=== PATIENT | female | born 2000 | race Caucasian/White ===

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

== ENCOUNTER 2021-02-25 11:02 | Emergency (ER) | payer BC, OTHER ==
[2021-02-25 11:08] VITALS: TEMP 97.2
[2021-02-25] MEDS ORDERED: MORPHINE SULFATE 4 MG/ML SYRINGE IV STA (11:37)
[2021-02-25] MEDS ORDERED: SODIUM CHLORIDE 0.9% 1,000 ML IV STA (11:37)
[2021-02-25] MEDS ORDERED: ONDANSETRON 4 MG/2 ML VIAL IVP STA (11:38)
--- NOTE | 2021-02-25 12:06 | ED ---
General Adult HPI - General Chief complaint: Nausea/Vomiting/Diarrhea Stated complaint: vomiting, chest burning Time Seen by Provider: 02/25/21 11:15 Source: patient, RN notes reviewed Mode of arrival: ambulatory - History of Present Illness Initial comments: 20-year-old female with a past medical history of asthma presents to the emergency room for a chief complaint of chest pain. Patient was drinking last night. She started to develop chest pain and nausea vomiting. Patient states she thinks she has all call poisoning. Denies fevers.Patient has no other complaints at this time including shortness of breath, headache, or visual changes. - Related Data Home Medications Medication Instructions Recorded Confirmed Medroxyprogesterone Acetate 150 mg IM Q84D 11/19/20 02/25/21 [Depo-Provera] Allergies Allergy/AdvReac Type Severity Reaction Status Date / Time bee venom protein (honey bee) Allergy Anaphylaxis Verified 02/25/21 12:22 mosquito Allergy Swelling Uncoded 02/25/21 12:22 Review of Systems ROS Statement: Those systems with pertinent positive or pertinent negative responses have been documented in the HPI. ROS Other: All systems not noted in ROS Statement are negative. Past Medical History Past Medical History: Asthma Additional Past Medical History / Comment(s): Sport induced asthma History of Any Multi-Drug Resistant Organisms: None Reported Past Surgical History: No Surgical Hx Reported Additional Past Surgical History / Comment(s): Heart surgery for congenital defect 2009 Past Psychological History: Anxiety, Depression Smoking Status: Never smoker Past Alcohol Use History: None Reported Past Drug Use History: None Reported General Exam General appearance: alert, in distress (mildly distressed secondary to pain) Head exam: Present: atraumatic Eye exam: Present: normal appearance, PERRL, EOMI. Absent: scleral icterus, conjunctival injection ENT exam: Present: normal exam, mucous membranes moist Neck exam: Present: normal inspection, full ROM. Absent: tenderness Respiratory exam: Present: normal lung sounds bilaterally. Absent: respiratory distress, wheezes Cardiovascular Exam: Present: regular rate, normal rhythm, normal heart sounds GI/Abdominal exam: Present: soft, normal bowel sounds. Absent: distended, tenderness Neurological exam: Present: alert Course Vital Signs 02/25/21 02/25/21 02/25/21 11:05 12:08 13:08 Temperature 97.2 F L Pulse Rate 85 Respiratory 18 20 20 Rate Blood Pressure 117/75 O2 Sat by Pulse 99 Oximetry EKG Findings - EKG Comments: EKG Findings:: Normal sinus rhythm, ventricular rate 90, PA interval 150, QTC 467 Medical Decision Making - Medical Decision Making Those are stable. Patient was initially mildly distressed secondary to pain. Workup was obtained. EKG was nonischemic. Laboratory evaluation was unremarkable. Troponin negative. D-dimer normal. Chest x-ray shows no acute cardiopulmonary process. Patient reevaluated after pain medication and fluids and had significant department if symptoms. She is eating and drinking. Stating her pain is at a 0. No hematemesis. Patient at this time is stable for discharge home. Pain was likely musculoskeletal in nature from vomiting. She will return here for any worsening symptoms. - Lab Data Result diagrams: 02/25/21 11:48 02/25/21 11:48 Lab Results 02/25/21 02/25/21 02/25/21 Range/Units 11:48 11:48 11:48 WBC 9.0 (4.0-11.0) k/uL RBC 5.05 (3.80-5.40) m/uL Hgb 14.5 (11.4-16.0) gm/dL Hct 44.1 (34.0-46.0) % MCV 87.4 (80.0-100.0) fL MCH 28.7 (25.0-35.0) pg MCHC 32.9 (31.0-37.0) g/dL RDW 12.9 (11.5-15.5) % Plt Count 281 (150-450) k/uL MPV 7.9 PT 11.5 (9.0-12.0) sec INR 1.1 (<1.2) APTT 24.2 (22.0-30.0) sec D-Dimer 0.25 (<0.60) mg/L FEU Sodium 142 (137-145) mmol/L Potassium 4.2 (3.5-5.1) mmol/L Chloride 108 H (98-107) mmol/L Carbon Dioxide 21 L (22-30) mmol/L Anion Gap 13 mmol/L BUN 10 (7-17) mg/dL Creatinine 0.59 (0.52-1.04) mg/dL Est GFR (CKD-EPI)AfAm >90 (>60 ml/min/1.73 sqM) Est GFR (CKD-EPI)NonAf >90 (>60 ml/min/1.73 sqM) Glucose 110 H (74-99) mg/dL Calcium 10.2 (8.4-10.2) mg/dL Magnesium 1.8 (1.6-2.3) mg/dL Total Bilirubin 0.7 (0.2-1.3) mg/dL AST 23 (14-36) U/L ALT 19 (4-34) U/L Alkaline Phosphatase 60 (38-126) U/L Troponin I (0.000-0.034) ng/mL Total Protein 8.2 (6.3-8.2) g/dL Albumin 5.0 (3.5-5.0) g/dL Lipase 42 (23-300) U/L HCG, Qual Not Detected 02/25/21 Range/Units 11:48 WBC (4.0-11.0) k/uL RBC (3.80-5.40) m/uL Hgb (11.4-16.0) gm/dL Hct (34.0-46.0) % MCV (80.0-100.0) fL MCH (25.0-35.0) pg MCHC (31.0-37.0) g/dL RDW (11.5-15.5) % Plt Count (150-450) k/uL MPV PT (9.0-12.0) sec INR (<1.2) APTT (22.0-30.0) sec D-Dimer (<0.60) mg/L FEU Sodium (137-145) mmol/L Potassium (3.5-5.1) mmol/L Chloride (98-107) mmol/L Carbon Dioxide (22-30) mmol/L Anion Gap mmol/L BUN (7-17) mg/dL Creatinine (0.52-1.04) mg/dL Est GFR (CKD-EPI)AfAm (>60 ml/min/1.73 sqM) Est GFR (CKD-EPI)NonAf (>60 ml/min/1.73 sqM) Glucose (74-99) mg/dL Calcium (8.4-10.2) mg/dL Magnesium (1.6-2.3) mg/dL Total Bilirubin (0.2-1.3) mg/dL AST (14-36) U/L ALT (4-34) U/L Alkaline Phosphatase (38-126) U/L Troponin I <0.012 (0.000-0.034) ng/mL Total Protein (6.3-8.2) g/dL Albumin (3.5-5.0) g/dL Lipase (23-300) U/L HCG, Qual Disposition Clinical Impression: Atypical chest pain, Nausea and vomiting Disposition: HOME SELF-CARE Condition: Good Instructions (If sedation given, give patient instructions): Acute Nausea and Vomiting (ED) Additional Instructions: Please take nausea medicine as needed. Take Motrin or Tylenol for pain. If you have worsening symptoms return to the emergency room. Is patient prescribed a controlled substance at d/c from ED?: No Referrals: Demarco Auguste MD [Primary Care Provider] - 1-2 days Time of Disposition: 13:14
[2021-02-25 12:12] LABS: ALT 19 U/L (4-34); AST 23 U/L (14-36); African American GFR (CKD) >90 (>60 ml/min/1.73 sqM); Alkaline Phosphatase 60 U/L (38-126); Anion Gap 13 mmol/L; Blood Urea Nitrogen 10 mg/dL (7-17); Calcium 10.2 mg/dL (8.4-10.2); Carbon Dioxide 21 mmol/L (22-30); Chloride 108 mmol/L (98-107); Glucose 110 mg/dL (74-99); Lipase 42 U/L (23-300); Magnesium 1.8 mg/dL (1.6-2.3); Non-African American GFR(CKD) >90 (>60 ml/min/1.73 sqM); Potassium 4.2 mmol/L (3.5-5.1); Sodium 142 mmol/L (137-145); Total Bilirubin 0.7 mg/dL (0.2-1.3); Total Protein 8.2 g/dL (6.3-8.2)
[2021-02-25 12:19] LABS: INR 1.1 (<1.2); Partial Thromboplastin Time 24.2 sec (22.0-30.0); Prothrombin Time 11.5 sec (9.0-12.0)
[2021-02-25 12:25] LABS: Basophils % (A) 0 %; Eosinophils % (A) 0 %; HCT 44.1 % (34.0-46.0); HGB 14.5 gm/dL (11.4-16.0); Lymphocytes # (A) 1.1 k/uL (1.0-4.8); Lymphocytes % (A) 12 %; MCH 28.7 pg (25.0-35.0); MCHC 32.9 g/dL (31.0-37.0); MCV 87.4 fL (80.0-100.0); Mean Platelet Volume 7.9; Monocytes # (A) 0.2 k/uL (0-1.0); Monocytes % (A) 3 %; Neutrophils # (A) 7.5 k/uL (1.3-7.7); Neutrophils % (A) 84 %; Platelet Count 281 k/uL (150-450); RBC 5.05 m/uL (3.80-5.40); RDW 12.9 % (11.5-15.5)
--- NOTE | 2021-02-25 12:32 | XR ---
EXAMINATION TYPE: XR chest 2V DATE OF EXAM: 02/25/2021 COMPARISON: Chest x-ray 09/15/2018 HISTORY: Chest pain TECHNIQUE: Frontal and lateral views of the chest are obtained. FINDINGS: There is no focal air space opacity, pleural effusion, or pneumothorax seen. The cardiac silhouette size is within normal limits. There are overlying leads. Intracardiac atrial septal defec t occluding device is present. The osseous structures are intact. IMPRESSION: No acute cardiopulmonary process.
[2021-02-25 12:56] LABS: HCG,Qualitative Serum Not Detected
[2021-02-25 13:10] VITALS: RESP 20
[2021-02-25] MEDS ORDERED: ACET/COD 300 MG/30 MG STARTER PACK 6 TAB BTL PO STA (13:15)
[2021-02-25] MEDS ORDERED: ONDANSETRON 4 MG ODT STARTER PACK 2 TAB BTL PO STA (13:23)
[2021-02-25 13:37] VITALS: BP 114/67; PULSE 77
== END 2021-02-25 13:37 | disposition home or self-care (01) ==
LOC: EC 11:02
DX: R07.89 Other chest pain (principal); R11.2 Nausea with vomiting, unspecified; J45.909 Unspecified asthma, uncomplicated; F41.9 Anxiety disorder, unspecified; F32.9 Major depressive disorder, single episode, unspecified
CPT/HCPCS: 36415; 93005; 85379; 80053; 83690; 83735; 84484; 85025; 85610; 85730; 84703; 71046; 99285; 96374; 96375; 96361; J2270; J2405; S0119

== ENCOUNTER → 2021-04-24 | Outpatient (CLI) | payer BC, OTHER | END | disposition home or self-care (01) | LOC: LABWHC1 10:54 | PROVIDERS: ATTEND Family Medicine | DX: Z20.822 Contact with and (suspected) exposure to COVID-19 (principal); J06.9 Acute upper respiratory infection, unspecified | CPT/HCPCS: 87502; U0003; C9803; U0005 ==

== ENCOUNTER → 2023-03-03 | Outpatient (CLI) | payer BC, OTHER ==
--- NOTE | 2023-03-03 17:36 | US ---
EXAMINATION TYPE: US OB anatomy transabd DATE OF EXAM: 03/03/2023 COMPARISON: US initial anatomy scan 01/21/2023 CLINICAL INDICATION: Female, 22 years old with history of Z34.90 ENCNTR FOR SUPRVSN OF NORMAL PREG, U NSP, FI; Supervision of normal , anatomy order. . TECHNIQUE: Transabdominal (TA) EXAM MEASUREMENTS: GESTATIONAL AGE / DATING Physician Established: (24 weeks/2 days) EDC: 06/21/2023 Dates by LMP: (23 weeks/5 days) EDC: 06/25/2023 Dates by First Scan: (24 weeks/2 days) EDC: 06/21/2023 Dates by Current Scan for: (24 weeks/4 days) EDC: 06/19/2023 SURVEY IUP: Single PLACENTA: Anterior PREVIA: No previa ELISA: 14.1 cm Normal CERVICAL LENGTH (transabdominal: norm > 3.0cm): 3.3 cm BIOMETRY PRESENTATION: Vertex BPD: 6.05 cm 24 weeks / 5 days HC: 22.45 cm 24 weeks / 4 days AC: 18.97 cm 23 weeks / 6 days FL: 4.54 cm 25 weeks / 1 day ESTIMATED WEIGHT IN GRAMS: 684 grams ESTIMATED WEIGHT IN LBS/OZ: 1 lbs. 8 oz. WEIGHT PERCENTAGE BASED ON ESTABLISHED DATE: 42 % HC/AC: 1.18 Normal FL/AC: 24% HEART RATE: 150 bpm RHYTHM: Normal ANATOMY SEEN (within normal limits): * Lateral Vent (< 1 cm) 0.56 cm * Cisterna Magna (< 1.1 cm) 0.44 cm * Nuchal Fold (< 0.6 cm) 0.24 cm * Cerebellum (varies with age) 2.18 cm Choroid Plexus (bilateral) Midline Falx Cavus Septi Pellucidi Four Chamber Heart Outflow tracts: LVOT Stomach Situs Diaphragm Bladder Three Vessel Cord Longitudinal Spine Transverse Spine Arms (bilateral) Legs (bilateral) ANATOMY SEEN (does not appear within normal limits): ANATOMY NOT SEEN: RVOT Nose / Lips Cord Insert was limited in visibility Viable IUP seen measuring 24 weeks and 4 days. Renal pelvis appears prominent bilaterally, but measures 2.5 mm on the right and 2.6 mm on the left . (still less than 4 mm) All anatomy was seen on prior exam. IMPRESSION: Single live intrauterine gestation with estimated gestational age of 24 weeks 4 days estimated due da te of 06/19/2023. Consider follow-up ultrasound for reassessment of anatomy not seen on today's exam.
== END | disposition home or self-care (01) ==
LOC: RADUSWWP 15:08
PROVIDERS: ATTEND Obstetrics & Gynecology
DX: Z34.92 Encounter for supervision of normal pregnancy, unspecified, second trimester (principal); Z3A.24 24 weeks gestation of pregnancy
CPT/HCPCS: 76811

== ENCOUNTER → 2023-04-15 | Outpatient (CLI) | payer BC, OTHER ==
--- NOTE | 2023-04-16 07:21 | US ---
EXAMINATION TYPE: US OB >= 14 wk fetus DATE OF EXAM: 04/15/2023 COMPARISON: None CLINICAL INDICATION: Female, 22 years old with history of Z34.90 ENCNTR FOR SUPRVSN OF NORMAL PREGNAN CY, UNS; Follow up from previous 03/03/2023 and 01/21/2023 TECHNIQUE: GESTATIONAL AGE / DATING Physician Established: 30 ( weeks/5 days) EDC: 06/19/2023 Dates by LMP: N/A Dates by First Scan: (30 weeks/0 days) EDC: 06/25/2023 Dates by Current Scan: (30 weeks/6 days) EDC: 06/18/2022 Beta HCG (if available): Not available SURVEY IUP: Single PLACENTA: Anterior PREVIA: No Previa ELISA: 9.8 cm Normal CERVICAL LENGTH (transabdominal: norm > 3.0cm): 3.7 cm; limited vis BIOMETRY PRESENTATION: Cephalic LIE: Longitudinal BPD: 7.74 cm 31 weeks / 0 days HC: 28.48 cm 31 weeks / 2 days AC: 26.36 cm 30 weeks / 3 days FL: 3.05 cm 31 weeks / 3 days ESTIMATED WEIGHT IN GRAMS: 1664 grams ESTIMATED WEIGHT IN LBS/OZ: 3 lbs. 11 oz. WEIGHT PERCENTAGE BASED ON ESTABLISHED DATES: 44% HC/AC: 1.08 Normal FL/AC: 22.97 Normal HEART RATE: 129 bpm RHYTHM: Normal Right ureter seen from renal pelvis to bladder without evidence of hydro, ?stone seen at ureter origin. Otherwise previously missed anatomy appeared within normal limits. All anatomy was seen on 01/21/2023 IMPRESSION: Single viable internal as noted above. anatomy as discussed.
== END | disposition home or self-care (01) ==
LOC: RADUSWWP 16:21
PROVIDERS: ATTEND Obstetrics & Gynecology
DX: Z34.93 Encounter for supervision of normal pregnancy, unspecified, third trimester (principal); Z3A.31 31 weeks gestation of pregnancy
CPT/HCPCS: 76805

== ENCOUNTER → 2023-05-23 | Outpatient (CLI) | payer BC, OTHER ==
--- NOTE | 2023-05-23 15:46 | US ---
EXAMINATION TYPE: US OB anatomy transabd DATE OF EXAM: 05/23/2023 COMPARISON: 01/21/2023 - anatomy 03/03/2023 - anatomy 04/15/2023 - growth CLINICAL INDICATION: Female, 22 years old with history of Z34.90 ENCNTR FOR SUPRVSN OF NORMAL PREGNAN CY, UNS; TECHNIQUE: Transabdominal (TA) EXAM MEASUREMENTS: GESTATIONAL AGE / DATING Physician Established: (36 weeks/1 days) EDC: 06/19/2023 Dates by LMP: NA Dates by First Scan: NA Dates by Current Scan for: (35 weeks/3 days) (6 days less growth than expected compared to ) EDC: 06/24/2023 SURVEY IUP: Single PLACENTA: Anterior PREVIA: No previa ELISA: 12.3 cm Normal CERVICAL LENGTH (transabdominal: norm > 3.0cm): 3.15 cm BIOMETRY PRESENTATION: Vertex LIE: Longitudinal BPD: 8.83 cm 35 weeks / 5 days HC: 32.06 cm 36 weeks / 1 days AC: 30.66 cm 34 weeks / 4 days FL: 7.06 cm 36 weeks / 1 days ESTIMATED WEIGHT IN GRAMS: 2648 grams ESTIMATED WEIGHT IN LBS/OZ: 5 lbs. 13 oz. WEIGHT PERCENTAGE BASED ON ESTABLISHED DATE: 29.4 % (versus 44th percentile on 04/15/2023) HC/AC: 1.05 Normal FL/AC: 23.02 Normal HEART RATE: 138 bpm RHYTHM: Normal ANATOMY NOT ASSESSED (seen on previous): Lateral Vent (< 1 cm) Seen on previous Nuchal Fold (< 0.6 cm) Seen on previous Cerebellum (varies with age) Seen on previous Choroid Plexus (bilateral) Seen on previous Outflow tracts: LVOT/RVOT Seen on previous Diaphragm Seen on previous Cord Insert Seen on previous Three Vessel Cord Seen on previous Arms (bilateral) Seen on previous Longitudinal Spine (suboptimal, excessive crowding) Transverse Spine (suboptimal, excessive crowding) Nose / Lips (suboptimal, excessive crowding) Legs (bilateral) (suboptimal, excessive crowding) Cavus Septi Pellucidi (suboptimal, excessive crowding) ANATOMY SEEN (within normal limits): Cisterna Magna (< 1.1 cm) 0.48 cm Midline Falx WNL Four Chamber Heart WNL Stomach WNL Situs WNL Kidneys (bilateral) WNL BladderWNL IMPRESSION: 1. Single live intrauterine with physician established gestational age of 36 weeks 1 day. C urrent ultrasound biometry is concordant but smaller (35 weeks 3 days) and with 6 days less growth th an expected compared to 04/15/2023. EFW has moved from the 44th percentile now to the 29th percentile . Ongoing follow-up as clinically indicated. 2. Multiple structures in the survey could not be adequately visualized due to crowded structur es. See above.
== END | disposition home or self-care (01) ==
LOC: RADUSWWP 13:11
PROVIDERS: ATTEND Obstetrics & Gynecology
DX: Z34.93 Encounter for supervision of normal pregnancy, unspecified, third trimester (principal); Z3A.37 37 weeks gestation of pregnancy
CPT/HCPCS: 76811

== ENCOUNTER 2023-06-19 23:15 | Inpatient (IN) | payer BC, OTHER ==
[2023-06-20] MEDS ORDERED: METHYLERGONOVINE 0.2 MG/ML 1 ML AMP IM PRN (00:16)
[2023-06-20] MEDS ORDERED: CARBOPROST TROMETHAMINE 250 MCG/ML 1 ML AMP IM PRN (00:16)
[2023-06-20] MEDS ORDERED: LIDOCAINE 0.5% (PF) 5 MG/ML (50 ML SDV) SQ PRN (00:16)
[2023-06-20] MEDS ORDERED: OXYTOCIN 10 UNIT/ML 1 ML VIAL IM PRN (00:16)
[2023-06-20] MEDS ORDERED: miSOPROStoL 200 MCG TAB PO PRN (00:16)
[2023-06-20] MEDS ORDERED: TRANEXAMIC 1,000 MG/100ML-NACL 1,000 MG in EMPTY BAG 1 BAG IV PRN (00:16)
[2023-06-20] MEDS ORDERED: TERBUTALINE 1 MG/ML VIAL SQ PRN (00:16)
[2023-06-20] MEDS: PENICILLIN G POTASSIUM 5,000,000 UNIT in DEXTROSE 5% IN WATER 100 ML IVPB STA (00:41)
[2023-06-20] MEDS: LACTATED RINGERS 1,000 ML IV SCH (00:42)
[2023-06-20] MEDS: OXYTOCIN 30 UNITS/500 ML NS 30 UNIT in SALINE 1 500ML.BAG IV SCH (00:46)
[2023-06-20 01:04] LABS: Basophils % (A) 0 %; Eosinophils # (A) 0.2 k/uL (0-0.7); Eosinophils % (A) 1 %; HCT 38.6 % (34.0-46.0); HGB 13.2 gm/dL (11.4-16.0); Lymphocytes # (A) 2.3 k/uL (1.0-4.8); Lymphocytes % (A) 15 %; MCH 31.6 pg (25.0-35.0); MCHC 34.2 g/dL (31.0-37.0); MCV 92.3 fL (80.0-100.0); Mean Platelet Volume 8.2; Monocytes # (A) 0.7 k/uL (0-1.0); Monocytes % (A) 5 %; Neutrophils # (A) 12.3 k/uL (1.3-7.7); Neutrophils % (A) 78 %; Platelet Count 270 k/uL (150-450); RBC 4.19 m/uL (3.80-5.40); RDW 13.4 % (11.5-15.5); WBC 15.8 k/uL (3.8-10.6)
[2023-06-20 02:04] LABS: Appearance,Urine Cloudy (Clear); Bilirubin,Urine Negative (Negative); Blood,Urine Negative (Negative); Color,Urine Colorless; Glucose,Urine (UA) Negative (Negative); Ketones,Urine Negative (Negative); Leukocyte Esterase,Urine Negative (Negative); Mucus,Urine Occasional /hpf; Nitrite,Urine Negative (Negative); PH, Urine 6.5 (5.0-8.0); Protein,Urine Negative (Negative); RBC,Urine <1 /hpf (0-5); Squamous Epithelial Cell,Urine 7 /hpf (0-4); Urobilinogen,Urine <2.0 mg/dL (<2.0); WBC,Urine 3 /hpf (0-5)
[2023-06-20 03:53] LABS: Amphetamine Screen,Urine Not Detected (NotDetected); Barbiturate Screen,Urine Not Detected (NotDetected); Benzodiazepines Screen,Urine Not Detected (NotDetected); Cocaine Screen,Urine Not Detected (NotDetected); Methadone Screen, Urine Not Detected (NotDetected); Opiate Screen,Urine Not Detected (NotDetected); Oxycodone Screen, Urine Not Detected (NotDetected); Phencyclidine Screen,Urine Not Detected (NotDetected); Tricyclic Antidepressant,Urine Not Detected (NotDetected); Urn Cannabinoid Scrn Not Detected (NotDetected)
[2023-06-20] MEDS: PENICILLIN G POTASSIUM 2,500,000 UNIT in DEXTROSE 5% IN WATER 100 ML IVPB SCH (04:31)
[2023-06-20] MEDS: NALBUPHINE 10 MG/ML (10 ML MDV) IV PRN (06:43)
[2023-06-20] MEDS ORDERED: ROPIVACAINE 5 MG/ML 30 ML VIAL ONE (09:07)
[2023-06-20] MEDS ORDERED: SODIUM CHLORIDE 0.9% 250 ML BAG ONE (09:07)
[2023-06-20] MEDS ORDERED: fentaNYL (PF) 50 MCG/ML 5 ML AMP ONE (09:07)
[2023-06-20 09:12] LABS: Hepatitis B Surface Antigen Nonreactive
--- NOTE | 2023-06-20 10:09 | P.HPOB ---
History of Present Illness H&P Date: 06/20/23 Chief Complaint: Rupture of membranes This is a 22-year-old 1 para 0 woman with a stated due date of 06/25/2023 who presents with possible rupture of membranes 48 hours. She is received care at [facility] with Dr. Field. She has been having ongoing discharge and leakage of fluids since the evening of 06/18/2023. She spoke with her physician who recommended she come here for evaluation. Upon evaluation in labor and delivery triage rupture of membranes is confirmed by positive amnio sure. She is fingertip dilated at that time and not regularly neyda. She states she is group B strep positive but her has otherwise been uncomplicated. Laboratory data shows blood type A-, antibody screen negative and rubella immune. Urine tox screen negative. WBC is 15.8. Platelets 270,000. Remainder of labs are pending. Review of Systems All systems: negative Past Medical History Past Medical History: Asthma Additional Past Medical History / Comment(s): Sport induced asthma. History of Any Multi-Drug Resistant Organisms: None Reported Additional Past Surgical History / Comment(s): Heart surgery for congenital defect 2009 Past Psychological History: Anxiety, Depression Smoking Status: Never smoker Past Alcohol Use History: None Reported Past Drug Use History: None Reported Medications and Allergies Home Medications Medication Instructions Recorded Confirmed Type Vit No.179/Iron/Folic 1 each PO DAILY 05/13/23 06/20/23 History [ Tablet] Allergies Allergy/AdvReac Type Severity Reaction Status Date / Time bee venom protein (honey bee) Allergy Anaphylaxis Verified 05/13/23 13:46 mosquito Allergy Swelling Uncoded 05/13/23 13:46 Exam Vital Signs Temp Pulse Resp BP Pulse Ox 06/20/23 00:21 98.2 F 95 16 122/77 98 06/20/23 00:12 98.2 F 95 16 122/77 98 Intake and Output 06/19/23 06/20/23 06/20/23 22:59 06:59 14:59 Other: # Voids 3 Weight 74.389 kg Upon my initial evaluation the patient is standing up at the bedside in active labor. She is unable to tolerate any type of exam secondary to discomfort at this time. The heart tones are category 2 secondary to interrupted tracing. She is neyda every 2-6 minutes. Results Result Diagrams: 06/20/23 00:40 06/20/23 00:40 Abnormal Lab Results - Last 24 Hours (Table) 06/20/23 06/20/23 06/20/23 Range/Units 00:40 00:40 00:40 WBC 15.8 H (3.8-10.6) k/uL Neutrophils # 12.3 H (1.3-7.7) k/uL Glucose 108 H (74-99) mg/dL Urine Appearance (Clear) Ur Squamous Epith Cells (0-4) /hpf Urine Mucus (None) /hpf Rubella IgG Antibody 52.80 H (0.00-9.00) IU/mL 06/20/23 Range/Units 01:00 WBC (3.8-10.6) k/uL Neutrophils # (1.3-7.7) k/uL Glucose (74-99) mg/dL Urine Appearance Cloudy H (Clear) Ur Squamous Epith Cells 7 H (0-4) /hpf Urine Mucus Occasional H (None) /hpf Rubella IgG Antibody (0.00-9.00) IU/mL Assessment and Plan (1) Prolonged rupture of membranes Current Visit: Yes Status: Acute Code(s): O42.90 - RANDAL ROM, 7TH0 BETW RUPT & ONST LABR, UNSP WEEKS OF GEST SNOMED Code(s): 53681424 (2) Term Current Visit: Yes Status: Acute Code(s): Z34.90 - ENCNTR FOR SUPRVSN OF NORMAL , UNSP, UNSP TRIMESTER SNOMED Code(s): 96307818 (3) Rh negative status during Current Visit: Yes Status: Acute Code(s): O26.899 - OTH RELATED CONDITIONS, UNSPECIFIED TRIMESTER; Z67.91 - UNSPECIFIED BLOOD TYPE, RH NEGATIVE SNOMED Code(s): 963814586 (4) Positive GBS test Current Visit: Yes Status: Acute Code(s): B95.1 - STREPTOCOCCUS, GROUP B, CAUSING DISEASES [facility] SNOMED Code(s): 006664377 Plan: This is a 22-year-old 1 para 0 woman with prolonged rupture of membranes, group B strep positive. Upon her admission penicillin group B strep prophylactic antibiotics were initiated. Pitocin induction of labor is initiated. At this time patient is not tolerating contractions and Pitocin has been discontinued. She did receive 1 dose of Nubain. My recommendation is for epidural anesthetic to give some relief and allow for more thorough labor assessment and cervical examination. Of note family members are quite belligerent and threatening. They are upset had with lack of assessment and plan in the setting of maternal intolerance of examination or labor. Pitocin has been discontinued and she is still spontaneously neyda approximately every 2-6 minutes. Her vital signs are stable. heart tones are category 2 secondary to interrupted tracing based on maternal activity with labor but appear overall reassuring. She is afebrile and fluid is clear. Once epidural is placed get a better assessment of heart rate tracing and maternal cervical dilation to further discuss options to proceed on with labor.
--- NOTE | 2023-06-20 10:12 | P.PN ---
Progress Note - Text Progress Note Date: 06/20/23 Patient is now much more comfortable with an epidural anesthetic in place. heart tones category 1. Irregular contractions. On vaginal examination the cervix is very thin approximate 90% effaced however is not dilated. The vertex is in the -2 station. Bedside ultrasound confirms vertex presentation. Examination is reviewed with the patient and the patient's mother at the bedside. I recommend restarting Pitocin induction of labor. We discussed the protocol of use of Pitocin to reassess regular basis. If the labor is progressing with good tolerance and no evidence of chorioamnionitis we would continue with induction. If the labor was not progressing then we would discuss possible primary section. The patient and her mother are comfortable with the plan. Did discuss the father of the baby so remains quite angry, is currently in the parking lot. I told that family at the bedside that under no circumstances is threatening behavior towards myself or the staff tolerable as it compromises the safety of the patient as well as myself and staff. She is welcome to return however will be asked to leave should she become threatening again.
[2023-06-20 15:34] LABS: HIV 2 AB Non-Reactive (Non-Reactive); HIV AB P24 Non-Reactive (Non-Reactive); HIV P24 AG Non-Reactive (Non-Reactive)
[2023-06-20] MEDS: CITRIC ACID-SODIUM CITRATE 15 ML CUP PO ONE (21:10)
[2023-06-20] MEDS ORDERED: OXYTOCIN 30 UNITS/500 ML NS 30 UNIT in SALINE 1 500ML.BAG IV SCH ×2 (21:15→22:30)
[2023-06-20] MEDS ORDERED: MORPHINE SULFATE (PF) 0.3 MG/0.3 ML SYR ONE (21:31)
[2023-06-20] MEDS ORDERED: ONDANSETRON 4 MG/2 ML VIAL ONE (21:31)
[2023-06-20] MEDS ORDERED: OXYTOCIN 10 UNIT/ML 1 ML VIAL ONE (21:31)
[2023-06-20] MEDS ORDERED: PHENYLEPHRINE-0.9% NACL SYG 1,000 MCG/10 ML SYRINGE ONE (21:31)
[2023-06-20] MEDS ORDERED: NALOXONE 0.4 MG/ML 1 ML VIAL IV PRN (22:23)
[2023-06-20] MEDS ORDERED: diphenhydrAMINE 25 MG CAP PO PRN (22:23)
[2023-06-20] MEDS ORDERED: ONDANSETRON 4 MG/2 ML VIAL IVP PRN (22:23)
[2023-06-20] MEDS ORDERED: SIMETHICONE 80 MG CHEWABLE PO PRN (22:23)
[2023-06-20] MEDS ORDERED: ZOLPIDEM 5 MG TAB PO PRN (22:23)
[2023-06-20] MEDS ORDERED: LANOLIN CREAM 1 GM TUBE TOPICAL PRN (22:23)
[2023-06-20] MEDS ORDERED: diphenhydrAMINE 50 MG/ML 1 ML VIAL IVP PRN (22:23)
[2023-06-20] MEDS ORDERED: diphenhydrAMINE 50 MG CAP PO PRN (22:23)
--- NOTE | 2023-06-20 22:32 | P.OP ---
Date of Procedure: 06/20/23 Preoperative Diagnosis: #1. 39-1/7 weeks, prolonged rupture of membranes, augmentation #2. Arrest of dilation #3. Maternal intolerance of labor #4. Suspected occiput posterior position Postoperative Diagnosis: Same Procedure(s) Performed: #1. Primary low transverse section Anesthesia: spinal Surgeon: Luis Gray Picking Machine Operator #1: Bridget Bentley Estimated Blood Loss (ml): 600 IV fluids (ml): 1,000 Urine output (ml): 200 Pathology: other (Placenta) Condition: stable Disposition: floor Operative Findings: Preoperatively, the patient presented with rupture of membranes for greater than 24 hours prior to presentation. She was admitted and started on Pitocin augmentation as well as antibiotic prophylaxis. She made minimal change throughout the first night of Pitocin and had significant discomfort. She ultimately agreed to have an epidural catheter placed after Pitocin had been halted. She then had Pitocin continued for the entirety of the day today and made progress to a maximum of approximately 2 cm of dilation with 90% effacement in the vertex and presentation at -1-2 station. Vital signs and temperature remained stable throughout. heart rate remained stable throughout. At approximately 2 cm of dilation and with greater than 20 hours of Pitocin augmentation and minimal change, the patient was experiencing significant and severe discomfort remote from delivery and requested section. She was taken to the operating room where she was delivered of a viable 6 pound 10 ounce baby girl with Apgars of 8 at 1 minute and 9 at 5 minutes delivered in the direct occiput posterior position. The placenta was delivered manually, intact, grossly normal with a grossly normal three-vessel cord. The uterus, tubes, and ovaries were entirely normal to inspection. Description of Procedure: The patient was prepped and draped in usual fashion after spinal anesthesia was administered by the anesthesiologist. A Pfannenstiel incision was made and extended into the abdominal cavity without difficulty. The bladder peritoneum was significantly distal to the intended site of incision and was left intact. A 2 cm incision was made in the transverse plane of the lower uterine segment after the uterus at which time clear fluid was encountered again. The incision was extended in both directions using the bandage scissors. The head was delivered up and through the incision in the occiput posterior position as noted above. The nose and mouth were thoroughly suctioned. The remainder of the was delivered onto the field where the cord was doubly clamped, cut, and the passed for resuscitative measures with weight and Apgars as noted above. A segment of cord was doubly clamped, cut, and set aside for cord gases become necessary. The placenta was delivered manually and intact as noted above. The uterus was exteriorized and the anterior cavity of the uterus swept of any remaining placental remnants fragments. The margins of the uterine incision were grasped with Alberto clamps and the incision closed in 2 layers. The first layer was a running locking stitch of 0 chromic echo followed by a running imbricating stitch of 0 chromic catgut, each from margin to margin. Hemostasis appeared to be excellent. The posterior cul-de-sac was suctioned with regard followed by a laparotomy sponge. The uterine and ovarian findings were normal as noted above. The uterus was replaced within the abdominal cavity and the gutters swept of any remaining blood, fluid, or clot. Any small points of bleeding along the incision were made hemostatic with the Bovie. After assuring hemostasis, the parietal peritoneum was loosely reapproximated and the layer of muscles were examined and found to be hemostatic. The fascia was closed with a single running stitch of 0 Vicryl proceeding from margin to margin. The subcutaneous tissues were irrigated, made hemostatic with the Bovie, and reapproximated with a running stitch of 3-0 plain catgut. The skin was reapproximated with a running subcuticular stitch of 4-0 Vicryl followed by half-inch Steri-Strips placed with Mastisol. Estimated blood loss for the case was approximately 600 cc. There were no complications. All sponge, instrument, and needle counts were correct. The patient tolerated the procedure well and proceeded to the recovery room in stable condition. Both mother and infant are resting comfortably in recovery.
[2023-06-21] MEDS: LACTATED RINGERS 1,000 ML IV ONE (00:08)
[2023-06-21] MEDS: METOCLOPRAMIDE 5 MG/ML 2 ML VIAL IVP PRN (00:46)
[2023-06-21] MEDS: LACTATED RINGERS 1,000 ML IV SCH (00:57)
[2023-06-21] MEDS: ACETAMINOPHEN TAB 500 MG TAB PO SCH (01:26)
[2023-06-21] MEDS: diphenhydrAMINE 50 MG/ML 1 ML VIAL IVP PRN (02:08)
[2023-06-21] MEDS: KETOROLAC 15 MG/ML 1 ML VIAL IVP PRN (04:31)
[2023-06-21] MEDS: Rhogam IMMUNE GLOBULIN 1,500 UNIT/1 ML IM ONE ×2 (05:41→19:37)
[2023-06-21] MEDS: IBUPROFEN 600 MG TAB PO SCH (05:54)
[2023-06-21] MEDS: SENNOSIDES-DOCUSATE SODIUM 1 EACH TAB PO SCH (07:34)
[2023-06-21 08:11] LABS: Basophils % (A) 0 %; Eosinophils # (A) 0.1 k/uL (0-0.7); Eosinophils % (A) 0 %; HCT 33.7 % (34.0-46.0); HGB 11.3 gm/dL (11.4-16.0); Lymphocytes % (A) 9 %; MCH 31.1 pg (25.0-35.0); MCHC 33.6 g/dL (31.0-37.0); MCV 92.5 fL (80.0-100.0); Mean Platelet Volume 8.5; Monocytes # (A) 1.1 k/uL (0-1.0); Monocytes % (A) 5 %; Neutrophils # (A) 18.2 k/uL (1.3-7.7); Neutrophils % (A) 84 %; Platelet Count 250 k/uL (150-450); RBC 3.64 m/uL (3.80-5.40); RDW 13.7 % (11.5-15.5); WBC 21.7 k/uL (3.8-10.6)
--- NOTE | 2023-06-21 10:04 | P.PN ---
Progress Note - Text Progress Note Date: 06/21/23 (979) Anesthesia Postop day 1 Subjective: Status Post section with Duramorph. Patient seen and examined. Doing well without complaint. VAS 0 out of 10. No nausea vomiting or pruritus. Denies fever. Gross lower extremity strength intact. Without apparent anesthetic complications. Objective: Vital signs reviewed Heart: Regular Rate Lungs: Good chest excursion Abdomen: Appears nondistended Assessment: Status post section with Duramorph postop day 1 Plan: 1. Continue current care with your medical management. Anticipated end to the duration of the Duramorph around surgery time today. You may see increased pain needs around this time. 2. This note was dictated using CopyRightNow software. Please be advised there is a potential for misspellings or errors in tamping machine operator road forms.
--- NOTE | 2023-06-21 10:40 | P.PNOBGPC ---
Subjective - Subjective Patient reports: Reports appetite normal, Reports voiding normally, Reports pain well controlled, Reports ambulating normally : doing well, in NICU (The was taken to the special care nursery for prophylactic antibiotics secondary to a moderately elevated white blood cell count. otherwise doing well.), nursing well Objective - Vital Signs Latest vital signs: Vital Signs Temp Pulse Resp BP Pulse Ox 06/21/23 08:00 98.6 F 79 18 122/75 97 06/21/23 04:00 98.2 F 74 18 111/59 97 06/21/23 00:29 97.2 F L 83 18 129/81 06/21/23 00:14 92 16 134/86 100 06/20/23 23:59 80 18 128/77 06/20/23 23:44 91 16 122/72 06/20/23 23:29 83 18 121/77 06/20/23 23:14 78 18 124/79 100 06/20/23 22:59 83 16 121/79 100 06/20/23 22:44 85 18 118/80 100 06/20/23 22:29 97.3 F L 90 18 117/59 Intake and Output 06/20/23 06/21/23 06/21/23 22:59 06:59 14:59 Intake Total 43.467 Output Total 1654 1965 400 Balance -1610.533 -1965 -400 Intake: Intake, IV Titration 43.467 Amount Oxytocin 30 Units/500 ml 43.467 Ns 30 unit In Saline 1 500ml.bag @ Per Protocol IV .Q0M [facility] Rx#:[id number] Output: Urine 1600 400 Uretheral (Delgado) 400 Estimated Blood Loss 600 Output, Quantitative 1054 365 Blood Loss Other: Voiding Method Indwelling Catheter - Exam Extremities: Present: normal Abdomen: Present: normal appearance, soft. Absent: distention, tenderness Incision: Present: normal, dry, intact Uterus: Present: normal, firm (The uterine fundus is tonic and minimally tender below the umbilicus.) - Labs Labs: Abnormal Lab Results - Last 24 Hours (Table) 06/21/23 Range/Units 07:43 WBC 21.7 H (3.8-10.6) k/uL RBC 3.64 L (3.80-5.40) m/uL Hgb 11.3 L (11.4-16.0) gm/dL Hct 33.7 L (34.0-46.0) % Neutrophils # 18.2 H (1.3-7.7) k/uL Monocytes # 1.1 H (0-1.0) k/uL Assessment and Plan (1) S/P section Current Visit: Yes Status: Acute Code(s): Z98.891 - HISTORY OF UTERINE SCAR FROM PREVIOUS SURGERY SNOMED Code(s): 557074447 Plan: Continue routine and postoperative care. I have encouraged the patient ambulate in the hallways routinely. Discharge timing will be dependent upon ongoing treatment of the or the patient reaching and postoperative day #4 at which time she will be discharged assuming no complications.
--- NOTE | 2023-06-22 11:20 | P.PNOBGPC ---
Subjective - Subjective Patient reports: Reports appetite normal, Reports voiding normally, Reports pain well controlled, Reports ambulating normally : doing well, in NICU (Cultures pending, no other current interventions.) Objective - Vital Signs Latest vital signs: Vital Signs Temp Pulse Resp BP Pulse Ox 06/22/23 08:00 98.0 F 84 18 90/54 98 06/22/23 00:00 98.1 F 85 16 113/67 100 06/21/23 16:00 98.4 F 83 18 116/74 100 06/21/23 12:00 98.3 F 84 18 108/72 99 Intake and Output 06/21/23 06/22/23 06/22/23 22:59 06:59 14:59 Intake Total 600 Balance 600 Intake: Oral 600 Other: # Voids 1 - Exam Extremities: Present: normal Abdomen: Present: normal appearance, soft. Absent: distention, tenderness Incision: Present: normal, dry, intact Uterus: Present: normal, firm (The uterine fundus is tonic and appropriately tender below the umbilicus.) Assessment and Plan (1) S/P section Current Visit: Yes Status: Acute Code(s): Z98.891 - HISTORY OF UTERINE SCAR FROM PREVIOUS SURGERY SNOMED Code(s): 979371251 Plan: Continue routine and postoperative care. Discharge is possible tomorrow assuming that the 's cultures are negative and she is released from the special care nursery. I have continued to encourage the patient to ambulate in the hallways routinely. She is otherwise performing all activities of daily living.
[2023-06-23 09:35] VITALS: BP 113/69; PULSE 94; RESP 16; TEMP 97.7
--- NOTE | 2023-06-23 11:04 | P.DS ---
Providers Date of admission: 06/20/23 00:05 Expected date of discharge: 06/23/23 Attending physician: Yola Lares Primary care physician: Stated None - Discharge Diagnosis(es) (1) S/P section Current Visit: Yes Status: Acute Hospital Course: The patient is a 22-year-old 1 para 0 admitted at 38+ weeks with all of her care having occurred at another MACHINE DEBURRER's office in [facility]. She presents to labor and delivery on the instructions of her doctor to rule out rupture of membranes. Her has otherwise been reportedly uncomplicated and group B strep status is positive. On labor and delivery, she was found to be ruptured and perhaps as long as 48 hours. On labor and delivery, she had antibiotics and Pitocin started and made minimal progress through the night. She began to experience significant discomfort and the Pitocin was stopped. The patient had at that point declined analgesic intervention but eventually agreed to have an epidural catheter placed. She then had resumption of Pitocin augmentation for the entire length of the day and made progress from fingertip to perhaps 1-1/2 cm. Ultimately, she began to experience significant discomfort and it became apparent that it was likely that the epidural catheter had become dislodged. As she was significantly remote from delivery and with the diagnosis of prolonged rupture of membranes, she agreed to undergo primary section. She was taken to the operating room where she underwent the procedure in an uncomplicated fashion and was delivered of a viable 6 pound 10 ounce baby girl with Apgars of 8 at 1 minute and 9 at 5 minutes. Her and postoperative care was entirely uncomplicated with vital signs remaining stable and her temperature was afebrile throughout. The was taken to the nursery for observation secondary to a significantly elevated white blood cell count. The patient was ultimately deemed stable for discharge on and postoperative day #3 when the was to be released after negative cultures. She was discharged home to follow-up in either my office or her primary OBs office in 2 weeks for an incision check and then 6 weeks routinely. Discharge instructions included calling for any significantly increased bleeding or foul- smelling lochia, significantly increased fever or abdominal pain, perineal complaints, breast complaints, incisional complaints, or anything else that concerned her. She was additionally instructed to have nothing in the vagina for at least 6 weeks time to include intercourse. She was instructed to do no heavy lifting over the same period of time. She was lastly instructed to do no driving until off of all pain medications or 2 weeks time, whichever came first. She understood her instructions and agrees to follow-up as noted above. Discharge medications included continued vitamins as she has opted to breast-feed. She was otherwise to use [id number] analgesic pain medications. She was provided with a prescription for Tylenol 3, 1-2 p.o. every 6 hours as needed pain, #20 dispensed with no refills. Maternal blood type is A- and cord blood was sent for evaluation for the necessity of RhoGAM. Rubella status is immune. Discharge hemoglobin and hematocrit were 11.3 and 33.7 respectively. Procedures: #1. Antibiotic prophylaxis #2. Pitocin augmentation #3. Epidural analgesia #4. Primary low-transverse section Patient Condition at Discharge: Stable Plan - Discharge Summary New Discharge Prescriptions: No Action Vit No.179/Iron/Folic [ Tablet] 1 each PO DAILY Discharge Medication List Vit No.179/Iron/Folic [ Tablet] 1 each PO DAILY 05/13/23 [History] Follow up Appointment(s)/Referral(s): Luis Gray MD [STAFF PHYSICIAN] - 2 Weeks Discharge Disposition: HOME SELF-CARE
[2023-06-23 14:45] LABS: C. trachomatis,PCR Negative (Negative); N. gonorrhoeae,PCR Negative (Negative)
== END 2023-06-23 17:00 | disposition home or self-care (01) | DRG 788 ==
LOC: FBPOP 23:15 → 4FBP 06-20 00:05
PROVIDERS: ADMIT Obstetrics & Gynecology; ATTEND Obstetrics & Gynecology
PROC: 3E033VJ Introduction of Other Hormone into Peripheral Vein, Percutaneous Approach (ICD-10-PCS; 2023-06-20)
PROC: 4A0HXCZ Measurement of Products of Conception, Cardiac Rate, External Approach (ICD-10-PCS; 2023-06-20)
PROC: 10D00Z1 Extraction of Products of Conception, Low, Open Approach (ICD-10-PCS; principal; 2023-06-20 21:30)
DX: O42.92 Full-term premature rupture of membranes, unspecified as to length of time between rupture and onset of labor (principal); O32.8XX0 Maternal care for other malpresentation of fetus, not applicable or unspecified; F32.A Depression, unspecified; F41.9 Anxiety disorder, unspecified; J45.909 Unspecified asthma, uncomplicated; Z37.0 Single live birth; Z3A.39 39 weeks gestation of pregnancy; O26.893 Other specified pregnancy related conditions, third trimester; O62.0 Primary inadequate contractions; O99.344 Other mental disorders complicating childbirth; O99.52 Diseases of the respiratory system complicating childbirth; O99.824 Streptococcus B carrier state complicating childbirth; Z67.91 Unspecified blood type, Rh negative; Z91.030 Bee allergy status
CPT/HCPCS: 59025; 80306; 81001; 82947; 85025; 85461; 86762; 86780; 86850; 86870; 86880; 86900; 86901; 87340; 87390; 87491; 87591; 99213

== ENCOUNTER 2024-05-12 13:54 | Outpatient (CLI) | payer BC, OTHER ==
[2024-05-12 15:02] VITALS: BP 125/7; PULSE 85; RESP 16; TEMP 98.3
--- NOTE | 2024-05-23 11:37 | P.MSEPDOC ---
Presenting Problems - Arrival Data Date of Arrival on Unit: 05/12/24 Time of Arrival on Unit: 13:54 Mode of Transport: Ambulatory - Complaint OB-Reason for Admission/Chief Complaint: Rule Out SROM Medical History - Information : 2 Para: 1 Number of Living Children: 1 - Gestational Age Gestational Age by KADEEM (wks/days): 38 Weeks and 6 Days - History Complications: Prior Review of Systems - Review of Systems Constitutional: No problems Breast: No problems ENT: No problems Cardiovascular: No problems Respiratory: No problems Gastrointestinal: No problems Genitourinary: No problems Musculoskeletal: No problems Neurological: No problems Skin: No problems Vital Signs - Temperature Temperature: 98.3 F Temperature Source: Temporal Artery Scan - Pulse Right Sitting Brachial Pulse Rate: 85 Pulse Assessment Method: Automatic Cuff - Respirations Respiratory Rate: 16 Oxygen Delivery Method: Room Air O2 Sat by Pulse Oximetry: 100 - Blood Pressure Right Arm Sitting Blood Pressure: 125/7 Blood Pressure Mean: 46 Blood Pressure Source: Automatic Cuff Medical Screen Scoring - Assessment - Baby A Baseline FHR: 135 Heart Rate - NICHD Category: Category I (Normal) NST: Reactive Physician Notification - Physician Notified Physician Notified Date: 05/12/24 Physician Notified Time: 14:31 Physician: Luis Gray Order Received: Yes (DC) Maternal Triage Index - Maternal Triage Index Presenting for scheduled procedure w/no complaint: No - Stat/Priority 1 Stat Priority 1: No - Urgent/Priority 2 Urgent Priority 2: No - Prompt/Priority 3 Prompt Priority 3: No - Non-Urgent/Priority 4 Non-Urgent Priority 4: Yes Criteria Met for Priority 4: suspects leaking fluid x2days Disposition - Disposition OB Disposition: Discharge to home Discharge Date: 05/12/24 Discharge Time: 14:35 I agree with the RN Medical Screening Exam: Yes Physician's MSE Comment: I have neither seen nor examined the patient. Case reviewed; plan agreed upon as documented in EMR&OBIX.: Yes Diagnosis: RELATED CONDITIONS, UNSPECIFIED, THIRD TRIMESTER
== END 2024-05-12 14:35 | disposition home or self-care (01) ==
LOC: FBPOP 13:54
PROVIDERS: ATTEND Obstetrics & Gynecology
DX: O26.93 Pregnancy related conditions, unspecified, third trimester (principal); Z91.030 Bee allergy status; Z88.8 Allergy status to other drugs, medicaments and biological substances; Z3A.38 38 weeks gestation of pregnancy
CPT/HCPCS: 59025; 84112; 99213

== ENCOUNTER 2024-05-17 11:07 | Inpatient (IN) | payer BC, OTHER ==
[2024-05-17] MEDS: LACTATED RINGERS 1,000 ML IV ONE (12:20)
[2024-05-17] MEDS ORDERED: miSOPROStoL 200 MCG TAB PO PRN (12:35)
[2024-05-17] MEDS ORDERED: CARBOPROST TROMETHAMINE 250 MCG/ML 1 ML AMP IM PRN (12:35)
[2024-05-17 12:54] LABS: Basophils % (A) 0 %; Eosinophils # (A) 0.3 k/uL (0-0.7); Eosinophils % (A) 2 %; HCT 37.4 % (34.0-46.0); HGB 12.5 gm/dL (11.4-16.0); Lymphocytes % (A) 15 %; MCH 29.5 pg (25.0-35.0); MCHC 33.5 g/dL (31.0-37.0); Mean Platelet Volume 8.2; Monocytes # (A) 0.7 k/uL (0-1.0); Monocytes % (A) 5 %; Neutrophils % (A) 76 %; Platelet Count 225 k/uL (150-450); RBC 4.25 m/uL (3.80-5.40)
[2024-05-17] MEDS: LACTATED RINGERS 1,000 ML IV SCH ×2 (14:11→20:26)
[2024-05-17] MEDS: ACETAMINOPHEN IV (For NPO) 1,000 MG in EMPTY BAG 1 BAG IVPB STA (14:46)
[2024-05-17] MEDS: CITRIC ACID-SODIUM CITRATE 15 ML CUP PO ONE (16:02)
--- NOTE | 2024-05-17 16:45 | P.HPOB ---
History of Present Illness H&P Date: 05/17/24 Chief Complaint: 39 and 1 sevenths weeks, labor, previous section r equesting repeat The patient is a 23-year-old 2 para 1-0-0-1 admitted at 39 and 1 sevenths weeks as established by 12-week ultrasound. She is admitted with regular contractions and some moderate discomfort likely in early labor. She carries a history of a previous section and has requested repeat. This is a very short interval with her last ending less than a year ago. Her has otherwise been essentially uncomplicated though she is Rh- and received RhoGAM at 28 weeks. She additionally is known to be rubella nonimmune. On labor delivery, all signs are reassuring with a category 1 heart rate tracing. Group B strep status is negative. Obstetrical history: 2 para 1-0-0-1 with 1 term section as noted above. Current statistics are listed in history of present illness. EDC of 05/23/2022 was established by a 12-week ultrasound. Laboratory workup demonstrates a blood type of a negative with a negative antibody screen. Rubella status is nonimmune. The remainder of the laboratory workup was within normal limits. 1 hour Glucola was normal and group B strep status is negative. Gynecologic history: Unremarkable with no history of any infections to include STDs Review of Systems Review of systems is confined to history of present illness. Past Medical History Past Medical History: Asthma Additional Past Medical History / Comment(s): Sport induced asthma. History of Any Multi-Drug Resistant Organisms: None Reported Past Surgical History: Section Additional Past Surgical History / Comment(s): Heart surgery for congenital defect 2009, Primary c/s in 06/20/2023 Past Anesthesia/Blood Transfusion Reactions: No Reported Reaction Past Psychological History: Anxiety, Depression Smoking Status: Never smoker Past Alcohol Use History: None Reported Past Drug Use History: None Reported - Past Family History Brother(s) Additional Family Medical History / Comment(s): Pt reports brother passed in 2009 r/t aortic tear. Medications and Allergies Home Medications Medication Instructions Recorded Confirmed Type Vit No.179/Iron/Folic 1 each PO DAILY 05/13/23 05/17/24 History [ Tablet] Allergies Allergy/AdvReac Type Severity Reaction Status Date / Time bee venom protein (honey bee) Allergy Anaphylaxis Verified 05/17/24 11:16 mosquito Allergy Swelling Uncoded 05/17/24 11:16 Exam Vital Signs Temp Pulse Resp BP Pulse Ox 05/17/24 12:43 97.9 F 90 16 131/77 100 05/17/24 11:09 97.9 F 90 16 131/77 100 Intake and Output 05/17/24 05/17/24 05/17/24 06:59 14:59 22:59 Other: # Voids 1 Weight 74.843 kg In general, this is a well-developed, well-nourished white female in no acute distress. Her heart has a regular rhythm and rate without murmur. Her lungs are clear to auscultation bilaterally in all pavon. Her abdomen is gravid, nondistended, has normal active bowel sounds, is soft, nontender, and without any palpable masses aside from uterine fundus. Her extremities are without any cyanosis, clubbing, or edema and are nontender to palpation bilaterally. Digital cervical examination is deferred. Results Result Diagrams: 05/17/24 12:20 Abnormal Lab Results - Last 24 Hours (Table) 05/17/24 Range/Units 12:20 WBC 13.0 H (3.8-10.6) k/uL Neutrophils # 10.0 H (1.3-7.7) k/uL Assessment and Plan (1) Previous section Current Visit: Yes Status: Acute Code(s): Z98.891 - HISTORY OF UTERINE SCAR FROM PREVIOUS SURGERY SNOMED Code(s): 787179233 (2) Active labor at term Current Visit: Yes Status: Acute Code(s): VTX7829 - SNOMED Code(s): 36225120 Plan: The patient is admitted for repeat low-transverse section. The risks and complications have been thoroughly discussed and she has understood and agreed to proceed.
[2024-05-17] MEDS ORDERED: KETOROLAC 15 MG/ML 1 ML VIAL ONE (16:47)
[2024-05-17] MEDS ORDERED: OXYTOCIN 10 UNIT/ML 1 ML VIAL ONE (16:47)
[2024-05-17] MEDS ORDERED: ONDANSETRON 4 MG/2 ML VIAL ONE (16:47)
[2024-05-17] MEDS ORDERED: NALBUPHINE (ANES) 10 MG/ML - 1 ML AMP ONE (16:47)
[2024-05-17] MEDS ORDERED: MORPHINE SULFATE (PF) 0.3 MG/0.3 ML SYR ONE (16:47)
[2024-05-17] MEDS ORDERED: METOCLOPRAMIDE 5 MG/ML 2 ML VIAL IVP PRN (17:43)
[2024-05-17] MEDS ORDERED: ONDANSETRON 4 MG/2 ML VIAL IVP PRN (17:43)
[2024-05-17] MEDS ORDERED: diphenhydrAMINE 25 MG CAP PO PRN (17:43)
[2024-05-17] MEDS ORDERED: ZOLPIDEM 5 MG TAB PO PRN (17:43)
[2024-05-17] MEDS ORDERED: NALOXONE 0.4 MG/ML 1 ML VIAL IV PRN (17:43)
[2024-05-17] MEDS ORDERED: diphenhydrAMINE 50 MG/ML 1 ML VIAL IVP PRN ×2 (17:43)
[2024-05-17] MEDS ORDERED: LANOLIN CREAM 1 GM TUBE TOPICAL PRN (17:43)
[2024-05-17] MEDS ORDERED: OXYTOCIN 30 UNITS/500 ML NS 30 UNIT in SALINE 1 500ML.BAG IV SCH (17:45)
--- NOTE | 2024-05-17 17:50 | P.OP ---
Date of Procedure: 05/17/24 Preoperative Diagnosis: #1. 39 and 1 sevenths weeks, early labor #2. Previous section, requesting repeat Postoperative Diagnosis: Same Procedure(s) Performed: #1. Repeat low-transverse section Anesthesia: spinal Surgeon: Luis Gray Demonstrator Knitting #1: Citlali Bolaños Estimated Blood Loss (ml): 607 IV fluids (ml): 1,000 Urine output (ml): 300 Pathology: none sent Condition: stable Disposition: floor Operative Findings: Please see dictated H&P for findings leading to section. In the operating room, the patient was delivered of a viable 7 pound 13 ounce baby girl with Apgars of 9 at 1 minute and 9 at 5 minutes in the right occiput transverse position. The placenta was delivered manually, intact, grossly normal with a grossly normal three-vessel cord. The uterus, tubes, and ovaries were entirely normal to inspection but there was a adhesion from the anterior abdominal wall to the right anterior portion of the uterus which was mostly filmy in nature but left intact as it did not interfere with the procedure. Description of Procedure: The patient was prepped and draped in usual fashion after spinal anesthesia was administered by the anesthesiologist. A Pfannenstiel incision was made through her pre-existing scar and extended into the abdominal cavity with minimal difficulty. The scar was relatively dense throughout all layers. The anterior peritoneum was noted to be scarred to the right anterior portion of the uterus but was not in the way of the procedure and was left in place. The bladder peritoneum was noted to be relatively high and was elevated, incised, and reflected distally. A 2 cm incision was made the transverse plane of the lower uterine segment to enter the uterus at which time clear fluid was noted. The incision was extended both directions using the bandage scissors. The head was delivered up and through the incision where the nose and mouth was thoroughly suctioned. The remainder of the infant was delivered onto the field where the cord was doubly clamped, cut, and the passed resuscitative measures with weight and Apgars as noted above. cord blood was collected per protocol. The placenta was delivered manually, intact, grossly normal with a grossly normal three-vessel cord. The uterus was exteriorized and the anterior cavity of the uterus swept of any remaining placental or membranous fragments. The margins of the uterine incision were grasped with Alberto clamps and the uterine incision closed in 2 layers. The first layer was a running locking stitch of 0 chromic catgut from margin to margin followed by a running imbricating stitch of 0 chromic catgut from margin to margin. Examination demonstrated some bleeding near the left angle which was made hemostatic with a single zaqysr-gz-qryie stitch of 0 chromic catgut. The posterior cul-de-sac was then suctioned with a guard followed by laparotomy sponge. The uterine and ovarian findings were otherwise normal aside from the adhesion as noted above. The uterus was replaced within the abdominal cavity and the gutters swept of an remaining blood, fluid, or clot. Reexamination of the incision demonstrated hemostasis with some small points of bleeding along the bladder peritoneum which was made hemostatic with the Bovie. After ensuring hemostasis, the parietal peritoneum was loosely reapproximated and the layer of muscles examined and made hemostatic with the Bovie. The fascia was closed with a single running stitch of 0 Vicryl proceeding from lateral margin to lateral margin. The subcutaneous tissues were irrigated, made hemostatic with the Bovie, and reapproximated with a stitch of 3-0 plain catgut. The skin was reapproximated with a running subcuticular stitch of 4-0 Vicryl from margin to margin followed by half-inch Steri-Strips placed with Mastisol. Quantitative blood loss for the case was 607 mL. There were no complications. All sponge, instrument, and needle counts were correct. The patient tolerated the procedure well and proceeded to the recovery room in stable condition. Both mother and infant are resting comfortably in recovery.
[2024-05-17] MEDS: diphenhydrAMINE 50 MG CAP PO PRN (20:03)
[2024-05-17] MEDS: SENNOSIDES-DOCUSATE SODIUM 1 EACH TAB PO SCH (20:26)
[2024-05-17] MEDS: METHYLERGONOVINE 0.2 MG/ML 1 ML AMP IM PRN (20:53)
[2024-05-17] MEDS: BUTORPHANOL 1 MG/ML 1 ML VIAL IV PRN (21:12)
[2024-05-17] MEDS: OXYTOCIN 10 UNIT/ML 1 ML VIAL IM PRN (21:21)
[2024-05-17] MEDS: TRANEXAMIC 1,000 MG/100ML-NACL 1,000 MG in EMPTY BAG 1 BAG IV PRN (21:21)
[2024-05-17] MEDS: ACETAMINOPHEN IV (For NPO) 1,000 MG in EMPTY BAG 1 BAG IVPB SCH (21:53)
[2024-05-17] MEDS: NALBUPHINE 10 MG/ML (10 ML MDV) IV PRN (22:22)
[2024-05-17] MEDS: HYDROmorphone 1 MG/ML 1 ML SYRINGE IVP PRN (23:07)
[2024-05-17] MEDS ORDERED: SUCCINYLCHOLINE CHLORIDE 200 MG/10 ML VIAL IV ONE (23:47)
[2024-05-17] MEDS ORDERED: PROPOFOL 10 MG/ML 20 ML VIAL IV ONE (23:47)
--- NOTE | 2024-05-18 00:32 | P.OP ---
Date of Procedure: 05/18/24 Preoperative Diagnosis: #1. Status post repeat low-transverse section #2. hemorrhage with suspected intrauterine clot Postoperative Diagnosis: Same Procedure(s) Performed: #1. Evacuation of intrauterine clot #2. Placement of Rebeca catheter Anesthesia: WINSTON Surgeon: Luis Gray Estimated Blood Loss (ml): 310 IV fluids (ml): 400 Urine output (ml): 20 Pathology: none sent Condition: stable Disposition: floor Operative Findings: Preoperatively, the patient had had moderate to fairly brisk vaginal bleeding approximately 2 hours after section with significantly increase in pain. She had IV Pitocin and intramuscular Methergine given. Attempts to explore the uterus manually found the cervix to be approximately 1-1/2 cm dilated and clot was palpable within the lower uterine segment but could not be evacuated manually secondary to pain and the lack of cervical dilation. The bleeding was controlled with these medications but her pain remained uncontrolled. As a result, she was taken to the operating room where with both manual disimpaction of clot as well as the use of a large sharp curette and suction, approximately 310 mL of clot was evacuated from the uterus at which time the uterine fundus distended from at or above the umbilicus to 3 to 4 fingerbreadths below the umbilicus. I was able to manually feel the uterine incision which was intact. A Rebeca catheter was placed for continued intrauterine suction to control further bleeding. Description of Procedure: The patient was prepped and draped in usual fashion after general tracheal anesthesia was administered by the anesthesiologist. A weighted speculum was placed and a ring forceps utilized to remove some clot that was visible within the cervix which appears to now be approximately 3 cm dilated. Suction was utilized to further remove clot at the opening of the cervix and just inside of it. The suction was set aside and I was able to insert 2 fingers through the cervix and, with fundal pressure was able to extract approximately 275 mL of clot at which time the uterine fundus was significantly below the umbilicus. I was also able to palpate the stitch line in the lower uterine segment which was intact. There was minimal ongoing bleeding. The Hayde catheter was placed per protocol and suction applied while in the OR which failed to demonstrate any significant further ongoing bleeding. It was removed from suction to be reapplied once back in her room. All instrumentation was removed. The Delgado catheter remained in place throughout the case. Total blood loss for the case w as approximately 310 mL. There were no complications. All sponge, instrument, and needle counts were correct. The patient tolerated the procedure well and proceeded to the recovery room in stable condition.
[2024-05-18] MEDS: ACETAMINOPHEN TAB 500 MG TAB PO SCH (06:36)
[2024-05-18 07:04] LABS: Basophils % (A) 0 %; Eosinophils % (A) 0 %; HCT 25.5 % (34.0-46.0); Lymphocytes % (A) 7 %; MCH 29.6 pg (25.0-35.0); MCHC 33.2 g/dL (31.0-37.0); MCV 89.1 fL (80.0-100.0); Mean Platelet Volume 8.5; Monocytes # (A) 0.6 k/uL (0-1.0); Monocytes % (A) 5 %; Neutrophils # (A) 12.1 k/uL (1.3-7.7); Neutrophils % (A) 87 %; Platelet Count 205 k/uL (150-450); RBC 2.86 m/uL (3.80-5.40); RDW 13.9 % (11.5-15.5); WBC 13.9 k/uL (3.8-10.6)
[2024-05-18 07:17] LABS: HGB 8.5 gm/dL (11.4-16.0)
--- NOTE | 2024-05-18 08:32 | P.PNOBGPC ---
Subjective - Subjective Interval history: Pain significantly improved from last evening prior to evacuation of hematoma. Patient reports: Reports appetite normal, Reports voiding normally, Reports pain well controlled, Reports ambulating normally [employer] [place]: doing well Objective - Vital Signs Latest vital signs: Vital Signs Temp Pulse Resp BP Pulse Ox 05/18/24 08:00 97.5 F L 73 16 117/67 99 05/18/24 04:00 99 05/18/24 02:01 97.4 F L 90 15 125/62 99 05/18/24 01:46 81 16 121/66 100 05/18/24 01:31 71 15 113/64 98 05/18/24 01:16 72 14 105/59 97 05/18/24 01:01 83 14 118/67 100 05/18/24 00:46 78 14 117/55 100 05/18/24 00:31 96.6 F L 71 12 102/55 99 05/17/24 23:10 99 18 135/72 100 05/17/24 22:00 104 H 18 133/79 99 05/17/24 21:26 102 H 20 153/91 95 05/17/24 21:12 92 18 146/73 99 05/17/24 21:00 107 H 20 144/80 100 05/17/24 20:50 104 H 20 130/60 100 05/17/24 20:41 90 17 131/59 100 05/17/24 19:50 97.7 F 81 15 116/60 100 05/17/24 19:28 90 16 118/65 99 05/17/24 19:13 97.3 F L 67 12 111/65 99 05/17/24 18:58 71 16 112/68 99 05/17/24 18:43 63 16 112/61 99 05/17/24 18:28 73 17 117/60 98 05/17/24 18:13 74 16 111/60 99 05/17/24 17:58 80 16 113/66 99 05/17/24 17:43 97.6 F 62 17 108/51 99 05/17/24 12:43 97.9 F 90 16 131/77 100 05/17/24 11:09 97.9 F 90 16 131/77 100 Intake and Output 05/17/24 05/18/24 05/18/24 22:59 06:59 14:59 Output Total 1015 407 Balance -1015 -407 Output: Urine 300 100 Uretheral (Delgado) 100 Output, Quantitative 715 307 Blood Loss Other: Voiding Method Indwelling Catheter Indwelling Catheter Indwelling Catheter - Exam Extremities: Present: normal Abdomen: Present: normal appearance, soft. Absent: distention, tenderness Incision: Present: normal, intact, other (Moderate bruising at left angle of incision, currently covered with pressure dressing.) Uterus: Present: normal, firm (The uterine fundus is tonic and appropriately tender just below the umbilicus.) - Labs Labs: Abnormal Lab Results - Last 24 Hours (Table) 05/17/24 05/18/24 Range/Units 12:20 06:27 WBC 13.0 H 13.9 H (3.8-10.6) k/uL RBC 2.86 L (3.80-5.40) m/uL Hgb 8.5 L D (11.4-16.0) gm/dL Hct 25.5 L (34.0-46.0) % Neutrophils # 10.0 H 12.1 H (1.3-7.7) k/uL Assessment and Plan (1) Previous section Current Visit: Yes Status: Acute Code(s): Z98.891 - HISTORY OF UTERINE SCAR FROM PREVIOUS SURGERY SNOMED Code(s): 673847989 (2) Active labor at term Current Visit: Yes Status: Acute Code(s): XUB1535 - SNOMED Code(s): 09120642 (3) hemorrhage Current Visit: Yes Status: Acute Code(s): O72.1 - OTHER IMMEDIATE HEMORRHAGE SNOMED Code(s): 02327734 (4) S/P section Current Visit: Yes Status: Acute Code(s): Z98.891 - HISTORY OF UTERINE SCAR FROM PREVIOUS SURGERY SNOMED Code(s): 360026608 Plan: Hemoglobin has dropped appropriately given amount of blood loss. The Hayde catheter remains in place with minimal output. We will follow the protocol for removing the Hayde this morning. Urine output has been excellent and the catheter will likely be removed this morning as well. Close surveillance remains a priority. Platelet count is normal. We will begin routine postoperative care hopefully later this morning and have the patient begin to ambulate. She has been cleared for regular diet.
[2024-05-18] MEDS: SIMETHICONE 80 MG CHEWABLE PO PRN (09:02)
[2024-05-18] MEDS: KETOROLAC 15 MG/ML 1 ML VIAL IVP PRN (09:22)
--- NOTE | 2024-05-18 12:44 | P.PN ---
Progress Note - Text Progress Note Date: 05/18/24 Patient doing well. Pain controlled w/ multimodal analgesia. Pruritis, not treated at this time. Denies headache. Back - spinal site clean and dry A/P POD#1 s/p w/ spinal duramorph - continue multimodal analgesia - consider Atarax
[2024-05-18] MEDS: IBUPROFEN 800 MG TAB PO SCH (17:25)
--- NOTE | 2024-05-19 08:43 | P.DS ---
Providers Date of admission: 05/17/24 12:35 Expected date of discharge: 05/19/24 Attending physician: Luis Gray Primary care physician: Stated None - Discharge Diagnosis(es) (1) Previous section Current Visit: Yes Status: Acute (2) Active labor at term Current Visit: Yes Status: Acute (3) hemorrhage Current Visit: Yes Status: Acute (4) S/P section Current Visit: Yes Status: Acute Hospital Course: Is a 23-year-old 2 para 1-0-0-1 admitted at 39 and 1 sevenths weeks by good dating parameters. She is admitted in early labor with all signs reassuring, category 1 heart rate tracing. She has a history of a previous section and has requested repeat. Her was otherwise essentially uncomplicated though she is Rh- and received RhoGAM at 28 weeks. She is additionally rubella nonimmune. She was taken to the operating room where she was delivered by repeat low-transverse section of a viable 7 pound 13 ounce baby girl with Apgars of 9 at 1 minute and 9 at 5 minutes. Her course was initially uncomplicated but she began to have fairly significant hemorrhage approximately 3 hours after delivery and multiple interventions were utilized to slow the bleeding but she continued to have significant pain. Her cervix was minimally dilated and she was thought to have clot trapped in the lower uterine segment. She was ultimately taken back to the operating room and under general anesthesia had evacuation of the clot with gentle curettage, manual extraction, and suction. Rebeca catheter was placed and remained in place for approximately 6 to 8 hours with no further bleeding thereafter and was ultimately removed with no further bleeding. Aside from the initial issues with hemorrhage, her course was otherwise unremarkable with vital signs remaining stable and her temperature was afebrile throughout. She was deemed stable for discharge on postoperative day #2 and was discharged home to follow-up in the office in 2 weeks for an incision check in 6 weeks routinely. Discharge instructions included calling for any significantly increased bleeding or foul-smelling lochia, significantly increased fever abdominal pain, perineal complaints, breast complaints, incisional complaints, or anything else that concerned her. She was additionally instructed to have nothing in the vagina for at least 6 weeks time to include intercourse and to abstain from any heavy lifting over the same period of time. She was lastly instructed to do no driving until off of all pain medications or 2 weeks time, whichever came first. She understood her instructions and agrees to follow-up as noted above. Discharge medications included continued vitamins as she has opted to breast-feed. She was otherwise to use [id number] analgesic pain medications. She was provided a prescription for oxycodone 5 mg, 1-2 p.o. every 6 hours as needed pain, #20 dispensed with no refills. Maternal blood type is A- and rubella status is nonimmune. She was to receive the MMR vaccination prior to discharge and cord blood was sent for evaluation for the necessity of RhoGAM prior to discharge. Discharge hemoglobin and hematocrit are currently pending but on postoperative day #1 were 8.5 and 25.5 respectively. Procedures: #1. Repeat low-transverse section #2. Operative evacuation of intrauterine hematoma under general anesthesia with placement of Rebeca catheter Patient Condition at Discharge: Stable Plan - Discharge Summary New Discharge Prescriptions: No Action Vit No.179/Iron/Folic [ Tablet] 1 each PO DAILY Discharge Medication List Vit No.179/Iron/Folic [ Tablet] 1 each PO DAILY 05/13/23 [History] Follow up Appointment(s)/Referral(s): Luis Gray MD [STAFF PHYSICIAN] - 05/31/24 1:15 pm (Post appointment 06-28-2024 at 01:45pm) Discharge Disposition: HOME SELF-CARE
[2024-05-19 08:47] LABS: Basophils % (A) 0 %; Eosinophils # (A) 0.2 k/uL (0-0.7); Eosinophils % (A) 2 %; HCT 23.2 % (34.0-46.0); HGB 7.7 gm/dL (11.4-16.0); Lymphocytes # (A) 1.5 k/uL (1.0-4.8); Lymphocytes % (A) 19 %; MCHC 33.1 g/dL (31.0-37.0); MCV 87.7 fL (80.0-100.0); Mean Platelet Volume 8.8; Monocytes # (A) 0.4 k/uL (0-1.0); Monocytes % (A) 5 %; Neutrophils # (A) 5.7 k/uL (1.3-7.7); Neutrophils % (A) 73 %; Platelet Count 221 k/uL (150-450); RBC 2.65 m/uL (3.80-5.40); RDW 14.4 % (11.5-15.5); WBC 7.9 k/uL (3.8-10.6)
[2024-05-19 08:59] VITALS: BP 104/68; PULSE 78; RESP 17; TEMP 98.1
[2024-05-19] MEDS: Rhogam IMMUNE GLOBULIN 1,500 UNIT/1 ML IM ONE (12:54)
[2024-05-19] MEDS: MEASLES-MUMPS-RUBELLA VACC/PF 12,500 UNIT/0.5 ML VIAL SQ ONE (14:31)
== END 2024-05-19 14:40 | disposition home or self-care (01) | DRG 787 ==
LOC: FBPOP 11:07 → 4FBP 12:35
PROVIDERS: ADMIT Obstetrics & Gynecology; ATTEND Obstetrics & Gynecology
PROC: 0DNW0ZZ Release Peritoneum, Open Approach (ICD-10-PCS; 2024-05-17)
PROC: 10D00Z1 Extraction of Products of Conception, Low, Open Approach (ICD-10-PCS; principal; 2024-05-17 15:00)
PROC: 0W3R7ZZ Control Bleeding in Genitourinary Tract, Via Natural or Artificial Opening (ICD-10-PCS; 2024-05-18)
DX: O34.211 Maternal care for low transverse scar from previous cesarean delivery (principal); O72.2 Delayed and secondary postpartum hemorrhage; Z3A.28 28 weeks gestation of pregnancy; O32.8XX0 Maternal care for other malpresentation of fetus, not applicable or unspecified; O99.344 Other mental disorders complicating childbirth; O99.52 Diseases of the respiratory system complicating childbirth; O99.892 Other specified diseases and conditions complicating childbirth; F32.A Depression, unspecified; J45.909 Unspecified asthma, uncomplicated; Z37.0 Single live birth; F41.9 Anxiety disorder, unspecified; L29.9 Pruritus, unspecified; N73.6 Female pelvic peritoneal adhesions (postinfective)
CPT/HCPCS: 59025; 85025; 85461; 86850; 86900; 86901; 96360; 99215